=== PATIENT | male | born 1970 | race Caucasian/White ===

== ENCOUNTER 2017-09-29 00:03 | Observation (INO) | payer SELFPAY ==
[~2017-09-29] VITALS: Ht 177.8 cm; Wt 94.5 kg
[~2017-09-29 00:03] MED LIST: CHANTIX1 MG PO; DEPO-MEDROL80 MG/ML IM; FISH OIL1000 MG PO; FLEXERIL OR; FLEXERIL PO; FLEXERIL10 MG PO; FLONASE NASAL50 MCG; GLUCOPHAGE1000 MG PO; GLUCOPHAGE500 MG OR; GLUCOPHAGE500 MG PO; GLUCOTROL EXTE2.5 M1 PO; GLUCOTROL XL5 MG PO; INSULIN SYR1 ML/31 G SC; LEVEMIR SC; LEVEMIR1000 UNITS SC; LIPITOR40 MG PO; LISINOPRIL10 MG PO; LISINOPRIL20 MG PO; LOFIBRA200 MG PO; MEDDOSEPAK PO; NAPROSYN500 MG OR; NAPROXEN DR500 MG OR; NO; PERCOCET 5/325M1 TAB OR; PSEUDOEPHEDRINE OR; SIMVASTATIN20 MG PO; TOBRAMYCIN0.3 % OS; TRAMADOL HCL50 MG PO; TYLENOL500 MG OR; ULTRAM50 M1 PO; XANAX0.25 MG OR; ZOCOR5 MG OR
[2017-09-29 01:14] LABS: HEMATOCRIT 45.6 % (39.0-50.0); HEMOGLOBIN 15.7 g/dl (14.0-18.0); IMMATURE GRANULOCYTES 0.4 % (0.0-1.0); MEAN CELL VOLUME 93.4 fL CALC (80.0-100.0); MEAN CORPUSCULAR HGB 32.2 pG CALC (26.0-32.0); MEAN CORPUSCULAR HGB CONC 34.4 g/L CALC (32.0-36.0); NEUT# 8.4 thou/uL (1.82-7.42); RED BLOOD COUNT 4.88 mill/uL (4.70-6.10); RED CELL DISTRI WIDTH 11.8 % (11.5-15.5)
[2017-09-29 01:18] LABS: ALBUMIN 4.3 g/dL (3.2-5.0); ALKALINE PHOSPHATASE 82 u/l (38-126); ANION GAP 17 (6-22 (CALC)); BILIRUBIN, TOTAL 0.4 mg/dL (0.0-1.4); BUN 14 mg/dL (9-20); BUN/CREATININE RATIO 15 (12-20 (CALC)); CARBON DIOXIDE 26 mmol/l (22-30); CHLORIDE 98 mmol/l (95-108); GFR > 60 ML/MIN (>=60 (CALC)); GFR FOR AFR.AMER. > 60 ML/MIN (>=60 (CALC)); POTASSIUM 3.9 mmol/l (3.5-5.1); SGOT/AST 19 u/l (17-59); SGPT/ALT 37 u/l (21-72); SODIUM 137 mmol/l (137-146); TOTAL PROTEIN 7.2 g/dL (6.3-8.2)
[2017-09-29 01:21] LABS: ACT PARTIAL THROMBO TIME 26.1 SECONDS (20.0-32.5); INTERNATIONAL NORMALIZED RATIO 0.9 RATIO (0.7-1.3); PROTHROMBIN TIME 9.6 SECONDS (9.0-12.5)
[2017-09-29 02:08] LABS: MYOGLOBIN 52 ng/mL (0 - 121)
[2017-09-29] MEDS ORDERED: LEVEMIR FL100 UNIT/M SC (03:50)
[2017-09-29 04:00] VITALS: BP 114/61
[2017-09-29 07:34] VITALS: BP 113/55
[2017-09-29 09:43] LABS: CHOLESTEROL HDL RATIO 7.9 (<4.4 (CALC)); MAGNESIUM 1.6 mg/dL (1.6-2.3)
[2017-09-29 11:07] VITALS: BP 111/61
[2017-09-29] MEDS ORDERED: CARAFATE1 GM PO (11:16)
[2017-09-29] MEDS ORDERED: PROTONIX40 MG PO (11:16)
== END 2017-09-29 12:22 | disposition home or self-care (01) | DRG 313 ==
LOC: ED 00:03 → ED-I 02:37 → ED 02:57 → ED-I 02:58 → MS2 05:35
PROVIDERS: Emergency Medicine; Nurse Practitioner Family; ADMIT Internal Medicine; ATTEND Internal Medicine
DX: R07.9 Chest pain, unspecified (principal); K21.9 Gastro-esophageal reflux disease without esophagitis; I10 Essential (primary) hypertension; E11.9 Type 2 diabetes mellitus without complications; E78.5 Hyperlipidemia, unspecified; F17.210 Nicotine dependence, cigarettes, uncomplicated; Z79.4 Long term (current) use of insulin; Z82.49 Family history of ischemic heart disease and other diseases of the circulatory system
CPT/HCPCS: G0378; S0164